=== PATIENT | male | born 1985 ===

== ENCOUNTER 2017-04-27 14:04 | Emergency (ER) | payer MEDICARE, MEDICAID ==
[2017-04-27 16:58] VITALS: BP 112/55
--- NOTE | 2017-05-10 15:04 | UC ---
General HPI - HPI Summary HPI Summary: Pt was seen in [place] urgent [facility] on 04/27/2017 for refill of Medication of Suissevale 600mg BID and Invega 3mg daily, recently moved here from [place], but since moving is yet to establish care here [place] and needs refill on his meds in the interim. Denies any complaints today - History of Current Complaint Chief Complaint: UCGeneralIllness Stated Complaint: MED REFILL Time Seen by Provider: 04/27/17 17:11 Hx Obtained From: Patient, Family/Quality Tech Timing: Constant Onset Severity: Moderate Current Severity: None Pain Intensity: 0 Associated Signs & Symptoms: Positive: Agitation - Allergy/Home Medications Allergies/Adverse Reactions: Allergies Allergy/AdvReac Type Severity Reaction Status Date / Time No Known Allergies Allergy Verified 04/27/17 14:48 Home Medications: Home Medications Su[place]vale Carbonate TAB* 600 mg PO BID 04/27/17 [History Confirmed 04/27/17] Paliperidone ER TAB* [Invega ER TAB*] 1 tab PO DAILY 04/27/17 [History Confirmed 04/27/17] PMH/Surg Hx/FS Hx/Imm Hx - Additional Past Medical History Additional PMH: H/o schizoaffective DO Previously Healthy: Yes Psychological History: Other - Schizoaffective DO Other Psychological History: Schizoaffective DO - Surgical History Surgical History: None - Social History Alcohol Use: None Substance Use Type: Prescribed Smoking Status (MU): Light Every Day Tobacco Smoker Review of Systems Constitutional: Negative Skin: Negative Eyes: Negative ENT: Negative Respiratory: Negative Cardiovascular: Negative Gastrointestinal: Negative Genitourinary: Negative Motor: Negative Neurovascular: Negative Musculoskeletal: Negative Neurological: Negative Psychological: Anxious Is Patient Immunocompromised?: No All Other Systems Reviewed And Are Negative: Yes Physical Exam Triage Information Reviewed: Yes Appearance: No Pain Distress Vital Signs: Initial Vital Signs Temp 36.9 C 04/27/17 14:44 Pulse 73 04/27/17 14:44 Resp 12 04/27/17 14:44 BP 103/63 04/27/17 14:44 Pulse Ox 100 04/27/17 14:44 Eye Exam: Normal ENT Exam: Normal Dental Exam: Normal Neck exam: Normal Neck: Positive: 1 Respiratory Exam: Normal Cardiovascular Exam: Normal Abdominal Exam: Normal Musculoskeletal Exam: Normal Neurological Exam: Normal Psychological Exam: Normal, Other - affect and mood appropriate to situation Psychological: Positive: Other: - no thoughts of self-harm Skin Exam: Normal Course/Dx - Course Course Of Treatment: refilled Invega 3mg qd and Suissevale 600mg BID ONE week supply ONLY - Differential Dx - Multi-Symptom Provider Diagnoses: Schizoaffective DO. Medication refill Discharge - Discharge Plan Condition: Stable Disposition: HOME Prescriptions: Su[place] Carbonate TAB* 300 mg PO BID 7 Days #14 tab Paliperidone ER TAB* [Invega TAB*] 3 mg PO DAILY 7 Days #7 tab Patient Education Materials: Schizoaffective Disorder (ED) Forms: *Work Release Referrals: No Primary Care Phys,NOPCP [Primary Care Provider] - Additional Instructions: as tolerated
== END 2017-04-27 17:42 | disposition home or self-care (01) ==
LOC: UCEAST 14:04
DX: F25.9 Schizoaffective disorder, unspecified (principal); Z76.0 Encounter for issue of repeat prescription; F17.210 Nicotine dependence, cigarettes, uncomplicated
CPT/HCPCS: 99202; G0463